=== PATIENT | female | born 1970 | race Caucasian/White ===

== ENCOUNTER 2017-02-15 12:00 | Inpatient (IN) | payer OTHER ==
--- NOTE | ~2017-02-15 | DS ---
Unit #: [id number] #: [id number] Patient: HILDA MOCK [id number] [place] [address] [id number] I MR#: [id number] NAME: HILDA MOCK ROOM: [facility] Age: 46 Sex: F Admission Date: 02/15/2017 : 1970 Discharge Date: 02/19/2017 Attending Physician: Titus Villalpando M.D. DISCHARGE SUMMARY REASON FOR ADMISSION Hilda was a 46-year-old woman with history of polysubstance dependence and depression, who reports increasing hopelessness, helplessness, and difficulty maintaining sobriety. She relapsed some of her medications and could not contract for safety in the outpatient setting. She was readmitted for detox and re-initiation of treatment. DIAGNOSTIC STUDIES LABORATORY RESULTS: Beta-hCG was negative. CBC demonstrated low WBCs of 3.9, low hemoglobin of 9.6, low and hematocrit 31.4. MCV was also reduced at 69.8 with a low MCH of 21.8 and high RDW of 18.2. RPR was nonreactive. HOSPITAL COURSE Hilda was admitted and placed on suicide precautions. The opioid detox protocol was also initiated. Zoloft 50 mg daily was provided for depression with trazodone on a p.r.n. basis for insomnia. She had an uneventful period of inpatient detox and was able to contract for safety. On the date of discharge, she did not demonstrate any significant detox side effects, but had attended some psychotherapy groups and activities with dual diagnosis focus. DISCHARGE DIAGNOSES AXIS I: Major depressive disorder, F33.2; opioid dependence. AXIS II: No diagnosis. AXIS III: Polysubstance withdrawal. AXIS IV: AXIS V: DISCHARGE INSTRUCTIONS Follow up with primary care physician and [facility]. DISCHARGE MEDICATIONS 1. Zoloft 50 mg daily for depression. 2. Lisinopril 20 mg daily for hypertension. 3. Trazodone 50 mg at bedtime as needed for insomnia. CONDITION AT DISCHARGE Improved. PROGNOSIS Fair to good. Unit #: [id number] #: [id number] Patient: HILDA MOCK DIET Ad george. ACTIVITY Ad george. Dictated by... Titus Villalpando M.D. [facility]/liset TD: 02/19/2017 18:47 JOB #: [id number] DISCHARGE SUMMARY Page 1 of 1 X Titus Villalpando MD DISCHARGE SUMMARY
--- NOTE | ~2017-02-15 | HP ---
Unit #: [id number] #: [id number] Patient: HILDA MOCK [id number] [place] [address] [id number] MR#: [id number] NAME: HILDA MOCK ROOM: P180 Age: 46 Sex: F Admission Date: 02/15/2017 : 1970 Attending Physician: Titus Villalpando M.D. Admitting Physician: Titus Villalpando M.D. Primary Care Physician: Generic Doctor Not In System HISTORY AND PHYSICAL HISTORY OF PRESENT ILLNESS Hilda is a 46 year old admitted to [facility] because of her continued illicit substance abuse and abuse of alcohol. She has had other admissions to this facility for the same. PAST MEDICAL HISTORY 1. Long history of poly illicit substance abuse. 2. History of alcohol abuse. 3. High blood pressure. 4. Hepatitis C. PAST SURGICAL HISTORY 1. Pelvic lap. 2. Fractured right arm with ORIF. ALLERGIES No known drug allergies. SOCIAL HISTORY Smokes one pack per day. Drinks alcohol frequently. Admits to long history of opioid abuse to include IV heroin. FAMILY HISTORY Medically noncontributory. REVIEW OF SYSTEMS CONSTITUTIONAL: No fever or chills. HEENT: Denies any sore throat, ear pain or runny nose. CARDIOVASCULAR: Denies chest pain, irregular heart rhythm or palpitations. CHEST: Denies shortness of breath or cough. No hemoptysis. GASTROINTESTINAL: Denies nausea, vomiting, diarrhea or chronic constipation. ENDOCRINE: Denies history of increased thirst or urination. No recent significant weight loss or gain. GENITOURINARY: Denies dysuria, frequency, or hematuria. SKIN: Denies any rashes. HEMATOLOGIC: Denies history of increased bleeding or bruising. MUSCULOSKELETAL: Denies any hot, swollen joints. No generalized muscle pain. NEUROLOGIC: Denies problems with vision or speech. No frequent, severe headaches. No numbness, tingling or weakness in any extremities. Denies loss of bladder or bowel control. Unit #: [id number] #: [id number] Patient: HILDA MOCK CURRENT MEDICATIONS 1. Detox protocol. 2. Zestril 20 mg q. day. PHYSICAL EXAMINATION GENERAL: Alert, well nourished. No apparent distress. VITAL SIGNS: Blood pressure 138/88, heart rate 66, respirations 16, and temperature 98.6. WEIGHT: 148. HEIGHT: 5 feet 5 inches. SKIN: Warm and dry without rash or lesion. HEENT: Normocephalic. TMs not viewed. Oral and nasal passages clear. Conjunctivae clear. PERRLA. EOMs intact. NECK: Supple without lymphadenopathy or thyromegaly. HEART: Regular rate and rhythm without murmur. LUNGS: Clear. ABDOMEN: Soft, nontender. : Not done. EXTREMITIES: No evidence of cyanosis, clubbing or edema. Moves all without focal deficit. NEUROLOGICAL: Grossly within normal limits. Cranial Nerves: II: Visual sky are intact. III, IV AND : Extraocular movements are intact. Pupils are equal, round and reactive to light. V: Facial sensation is grossly normal. VII: Facial movements and expression are normal. VIII: Auditory acuity grossly intact. IX, X: Uvula is midline. Phonation is normal. XI: Patient shrugs shoulders and turns head normally. XII: Tongue protrudes in the midline. Sensory and Motor Function: Sensory and motor sensation is grossly normal. Motor: moves all extremities well. Coordination: Gait is normal. Deep Tendon Reflexes: Intact. IMPRESSION Psychiatric admission. RECOMMENDATIONS PSYCHIATRIC: Per psychiatrist. MEDICAL: I see no contraindication to participate in this facility's activities. MEDICAL PROGNOSIS Good. MEDICAL CONDITION Stable. Dictated by... Marah Pepper P.A.-C. for Richa Nathan/henrique TD: 02/16/2017 12:41 JOB #: [id number] Unit #: [id number] #: [id number] Patient: HILDA MOCK HISTORY AND PHYSICAL Page 1 of 1 X Marah Pepper HISTORY AND PHYSICAL
--- NOTE | ~2017-02-15 | PA ---
Unit #: [id number] #: [id number] Patient: GYPSY SANCHEZ [id number] [facility] [address] [place] [address] [id number] I MR#: [id number] NAME: GYPSY SANCHEZ ROOM: [facility] Age: 46 Sex: F Admission Date: 02/15/2017 : 1970 Date of Assessment: 02/16/2017 Attending Physician: Titus Villalpando M.D. Admitting Physician: Titus Villalpando M.D. Primary Care Physician: Generic Doctor Not In System PSYCHIATRIC ASSESSMENT INFORMANTS Patient, reliable; OLOP, reliable. CHIEF COMPLAINT Suicidal thoughts. HISTORY OF PRESENT ILLNESS Ms. Sanchez is a 46-year-old woman, who has relapsed on to her chemical dependence pattern and abusing heroin. She had increasing hopelessness, helplessness, and suicidal ideation with a plan to jump from a bridge. She was unable to contract for safety and was admitted for stabilization. PAST PSYCHIATRIC HISTORY The patient has been at this facility in the past for depression, but has been noncompliant with treatment. She is also admitted to [facility]. FAMILY PSYCHIATRIC HISTORY None reported. SOCIAL HISTORY The patient is a woman, who does have some supportive family. She has no history of childhood abuse or neglect. She is erratically employed with unstable housing. PAST MEDICAL HISTORY Hypertension. MEDICATIONS Please see MAR for current medication list. ALLERGIES No known medication allergies. SUBSTANCE USE HISTORY The patient has an extensive history of opioid and benzodiazepine dependence. MENTAL STATUS EXAMINATION The patient presented as a mildly disheveled woman, who appeared her stated age. She was cooperative with the examination. Her speech was spontaneous and easily understood. Her musculoskeletal examination was calm. Her mood was depressed with a congruent affect. She was alert and Unit #: [id number] #: [id number] Patient: GYPSY SANCHEZ fully oriented. Her memory and concentration were intact. Her thought processes were logical with no active psychosis. She reported suicidal ideation with a plan to jump from a bridge and could not contract for safety. Insight and judgment were fair. Fund of knowledge and abstraction were fair. ASSETS AND LIABILITIES The patient knows local resources and presents voluntarily for treatment. Liabilities include lack of current treatment plan and recent relapse. ADMITTING DIAGNOSES AXIS I: Major depressive disorder F33.2; opioid dependence, F11.23. AXIS II: No diagnosis. AXIS III: Polysubstance withdrawal. AXIS IV: AXIS V: PSYCHIATRIC PLAN The patient was admitted and placed on suicide precautions and the opioid detox protocol. Zoloft 50 mg daily will be initiated for treatment of depression with trazodone as needed for insomnia. Physical examination and laboratory studies will be ordered and reviewed. TREATMENT GOALS Resolution of SI, improvement in mood, establishment of sobriety, improvement in insight, and improvement in coping skills. DISCHARGE PLANNING Follow up with [facility]. ESTIMATED LENGTH OF STAY 5 days. Dictated by... Titus Villalpando M.D. [facility]/liset TD: 02/17/2017 13:04 JOB #: [id number] PSYCHIATRIC ASSESSMENT Page 1 of 1 X Titus Villalpando MD X PSYCHIATRIC ASSESSMENT
[~2017-02-15 12:00] MED LIST: LISINOPRIL10 MG PO
[2017-02-16 09:52] LABS: BASOPHIL% 0.8 % (0-2.5); EOSINOPHIL# 0.1 X10e3 (0-0.7); EOSINOPHIL% 3.2 % (0.0-7.0); HEMATOCRIT 31.4 % (35.0-45.0); HEMOGLOBIN 9.6 gm/dL (12.0-16.0); LYMPHOCYTE# 0.9 X10e3 (1.0-3.5); MEAN CELL VOLUME 69.8 FL (83-96); MEAN CORPUSCULAR HEMOGLOBIN 21.4 PG (28-34); MEAN CORPUSCULAR HGB CONC 30.7 g/dL (30-36); MEAN PLATELET VOLUME 7.7 FL (6.5-11.5); MONOCYTE# 0.3 X10e3 (0-1.0); MONOCYTE% 8.7 % (3.0-12.0); NEUTROPHIL# 2.5 X10e3 (1.5-7.1); NEUTROPHIL% 64.3 % (40-75); PLATELET COUNT 270 X10e3 (140-420); RED BLOOD COUNT 4.49 X10e (3.90-5.30); RED CELL DISTRIBUTION WIDTH 18.2 % (11.0-15.5); WHITE BLOOD COUNT 3.9 X10e3 (4.0-10.5)
[2017-02-16 10:07] LABS: DIFF IND NO
[2017-02-16 10:27] LABS: ALBUMIN SERUM 3.7 g/dL (3.5-5.0); BILIRUBIN,TOTAL 0.2 mg/dL (0.2-2.0); BUN/CREATININE RATIO 12.85; CALCIUM SERUM 9.5 mg/dL (8.4-10.2); CREATININE SERUM 0.7 mg/dL (0.6-1.4); GLOM FILT RATE Estimated 102.5 mL/min (>60); POTASSIUM 4.5 mmol/L (3.5-5.1); PROTEIN TOTAL SERUM 6.9 g/dL (6.0-8.3)
== END 2017-02-19 11:27 | disposition home or self-care (01) | DRG 885 ==
LOC: P1E 16:10
PROVIDERS: Psychiatry & Neurology Psychiatry
PROC: HZ2ZZZZ Detoxification Services for Substance Abuse Treatment (ICD-10-PCS; principal; 2017-02-15)
DX: F33.9 Major depressive disorder, recurrent, unspecified (principal); I10 Essential (primary) hypertension; F11.23 Opioid dependence with withdrawal; F17.210 Nicotine dependence, cigarettes, uncomplicated
CPT/HCPCS: 80053; 84703; 85025; 86592; J2550